=== PATIENT | male | born 1940 | race Caucasian/White ===

== ENCOUNTER 2019-02-23 03:39 | Outpatient (CLI) | payer MEDICARE, OTHER ==
[2019-02-23 13:30] LABS: Hemoglobin 13.9 g/dL (14.0-18.0); Mean Corpuscular HGB CONC 34.2 g/dL (32.0-36.0); Mean Corpuscular Hemoglobin 33.2 pg (27.0-31.0); Mean Corpuscular Volume 96.9 fL (78.0-98.0); Mean Platelet Volume 6.9 fL (7.4-10.4); Platelet Count 239 thou/uL (130-400); RBC Distribution Width 12.1 % (11.5-14.5); White Blood Cell (WBC) Count 11.6 thou/uL (4.8-10.8)
[2019-02-23 13:53] LABS: Anion Gap 13 mmol/L (10-20); BUN (Urea Nitrogen) 18 mg/dL (8.4-25.7); Calc. Creatinine Clearance 0 mL/min (70-130); Calcium 10.3 mg/dL (7.8-10.44); Carbon Dioxide 28 mmol/L (23-31); Chloride 104 mmol/L (98-107); Estimated GFR-MDRD 59; Glucose 99 mg/dL (83-110); Potassium 4.3 mmol/L (3.5-5.1); Sodium 141 mmol/L (136-145)
== END 2019-02-23 03:40 | disposition home or self-care (01) ==
LOC: LABBT 03:39
PROVIDERS: ATTEND Neurological Surgery
DX: Z01.818 Encounter for other preprocedural examination (principal); M54.16 Radiculopathy, lumbar region
CPT/HCPCS: 80048; 85027; 93005; 93010

== ENCOUNTER 2019-03-02 06:17 | Day surgery (SDC) | payer MEDICARE, OTHER ==
[2019-02-23 12:12] VITALS: BMI 24.3
[2019-03-02] MEDS ORDERED: Fentanyl 100 MCG/2 ML VIAL ONE ×3 (10:01→11:05)
--- NOTE | 2019-03-02 11:28 | OP ---
DATE OF PROCEDURE: 03/02/2019 PROCEDURE PERFORMED: Left L4-L5 and left L5-S1 microdiskectomy with operating microscope. DESCRIPTION OF PROCEDURE: The patient was brought to the operating room and intubated. He was rolled in a prone position on gel-filled chest rolls. An incision was made exposing the L4-L5 and L5-S1. Level was confirmed by x-ray. We initially explored the L4-L5 interspace, removed the hemilamina and the ligament, identifying the left L5 nerve root and beneath this, did identify many loose fragments of disk material. There was also some CSF visualized. It did not seem to me that the entire disk could be visualized from this approach. We therefore also exposed left L5-S1 completely exposing the left L5 nerve root in the thecal sac running alongside the left L5 pedicle. Exploring from the left L5-S1 region, also identified extruded disk material at this point that disk material had extruded intradurally. We removed extensive disk material from both the L5-S1 and L4-L5 approaches completely decompressing the L5 nerve root and the thecal sac. The dural breach was ventral. Gelfoam was placed in this region. The wound was then extensively irrigated and maximum hemostasis was secured. Vancomycin powder was applied. The wound was then closed in anatomic layers. Job ID: [id number]
[2019-03-02] MEDS ORDERED: Promethazine HCl 25 MG/ML VIAL ONE (11:35)
[2019-03-02] MEDS ORDERED: HYDROcodone/Acetaminophen 5/325 mg Tablet ONE (12:52)
[2019-03-02] MEDS ORDERED: Ondansetron PF 4 MG/2 ML Vial ONE (12:56)
[2019-03-02] MEDS ORDERED: Rocuronium Bromide 10 MG/ML (10ML VIAL) ONE (12:56)
[2019-03-02] MEDS ORDERED: Glycopyrrolate 0.2 MG/ML 5 ML SYRINGE ONE (12:56)
[2019-03-02] MEDS ORDERED: Dexamethasone 20 MG/5 ML VIAL ONE (12:56)
[2019-03-02] MEDS ORDERED: PROPOFOL 200 MG/20 ML VIAL ONE (12:56)
== END 2019-03-02 13:57 | disposition home or self-care (01) ==
LOC: SDC 06:17
PROVIDERS: ATTEND Neurological Surgery
PROC: 0SB20ZZ Excision of Lumbar Vertebral Disc, Open Approach (ICD-10-PCS; principal; 2019-03-02)
DX: M51.16 Intervertebral disc disorders with radiculopathy, lumbar region (principal); I25.10 Atherosclerotic heart disease of native coronary artery without angina pectoris; E78.5 Hyperlipidemia, unspecified; J30.9 Allergic rhinitis, unspecified; Z79.1 Long term (current) use of non-steroidal anti-inflammatories (NSAID); Z79.82 Long term (current) use of aspirin; Z79.02 Long term (current) use of antithrombotics/antiplatelets; Z79.899 Other long term (current) drug therapy; Z91.041 Radiographic dye allergy status; Z95.1 Presence of aortocoronary bypass graft; Z95.5 Presence of coronary angioplasty implant and graft
CPT/HCPCS: 76000; J0690; J1100; J2405; J2550; J2704; J3010; J3370

== ENCOUNTER 2021-02-21 10:37 | Outpatient (CLI) | payer MEDICARE, OTHER ==
[2021-02-21 11:40] LABS: Hemoglobin 13.1 g/dL (13.5-17.5); Mean Corpuscular HGB CONC 33.4 g/dL (32.0-36.0); Mean Corpuscular Hemoglobin 32.2 pg (27.0-33.0); Mean Corpuscular Volume 96.3 fl (81.2-95.1); Mean Platelet Volume 9.4 fl (7.4-10.4); Platelet Count 223 10x3/uL (150-450); RBC Distribution Width 13.2 % (11.5-14.5); Red Blood Cell (RBC) Count 4.07 10x6/uL (4.32-5.72); White Blood Cell (WBC) Count 8.3 10x3/uL (3.5-10.5)
[2021-02-21 12:01] LABS: Anion Gap 14 mmol/L (10-20); BUN (Urea Nitrogen) 14 mg/dL (8.4-25.7); Calc. Creatinine Clearance 0 mL/min (70-130); Calcium 9.7 mg/dL (7.8-10.44); Carbon Dioxide 28 mmol/L (23-31); Chloride 104 mmol/L (98-107); Glucose 109 mg/dL (83-110); Potassium 4.6 mmol/L (3.5-5.1); Sodium 141 mmol/L (136-145)
[2021-02-21 20:37] LABS: SARS-CoV-2 PCR by NAA Not Detected (NotDetected)
== END 2021-02-21 10:38 | disposition home or self-care (01) ==
LOC: LABBT 10:37
PROVIDERS: ATTEND Neurological Surgery
DX: Z01.818 Encounter for other preprocedural examination (principal); M54.16 Radiculopathy, lumbar region; Z20.822 Contact with and (suspected) exposure to COVID-19
CPT/HCPCS: 80048; 85027; 93005; U0003; U0005; 87635; 93010

== ENCOUNTER 2021-02-26 06:37 | Observation (INO) | payer MEDICARE, OTHER ==
[2021-02-23 10:00] VITALS: BMI 22.8
[2021-02-26] MEDS ORDERED: Fentanyl 100 MCG/2 ML VIAL ONE ×2 (09:28→11:51)
[2021-02-26] MEDS ORDERED: PHENYLEPHRINE-NS 100 MCG/ML 10 ML SYRINGE ONE ×2 (09:55→11:18)
[2021-02-26] MEDS ORDERED: Lidocaine 1% PF 5 ML VIAL ONE (09:55)
[2021-02-26] MEDS ORDERED: Dexamethasone 20 MG/5 ML VIAL ONE (09:55)
[2021-02-26] MEDS ORDERED: PROPOFOL 200 MG/20 ML VIAL ONE (09:55)
[2021-02-26] MEDS ORDERED: Rocuronium Bromide 10 MG/ML (10ML VIAL) ONE (09:55)
[2021-02-26] MEDS ORDERED: Ondansetron PF 4 MG/2 ML Vial ONE (09:55)
[2021-02-26] MEDS ORDERED: SUGAMMADEX SODIUM 200 MG/2 ML VIAL ONE (11:12)
[2021-02-26] MEDS ORDERED: HYDROmorphone 2 MG/ML VIAL SLOW IVP PRN (11:42)
[2021-02-26] MEDS ORDERED: Meperidine HCl/PF 25 MG/ML VIAL SLOW IVP PRN (11:42)
[2021-02-26] MEDS ORDERED: Promethazine HCl 25 MG/ML VIAL SLOW IVP PRN (11:42)
[2021-02-26] MEDS ORDERED: Ondansetron HCl/PF 4 MG/2 ML Vial IVP PRN (11:42)
[2021-02-26] MEDS ORDERED: Promethazine HCl 25 MG/ML VIAL IM PRN (14:15)
[2021-02-26] MEDS ORDERED: Morphine 2 MG/ML VIAL SLOW IVP PRN (14:15)
[2021-02-26] MEDS ORDERED: diphenhydrAMINE 25 MG CAP PO PRN (14:15)
[2021-02-26] MEDS ORDERED: Promethazine 25 MG TAB PO PRN (14:15)
[2021-02-26] MEDS ORDERED: diphenhydrAMINE 50 MG/ML VIAL IVP PRN (14:15)
[2021-02-26] MEDS ORDERED: Morphine 4 MG/ML VIAL SLOW IVP PRN (14:15)
[2021-02-26] MEDS ORDERED: Promethazine HCl 12.5 MG SUPP PR PRN (14:15)
[2021-02-26] MEDS ORDERED: traMADol HCl 50 MG TAB PO PRN ×2 (14:15)
[2021-02-26] MEDS ORDERED: Acetaminophen/Codeine 30-300mg Tablet PO PRN ×2 (14:15)
[2021-02-26] MEDS ORDERED: tiZANidine HCl 4 MG TAB PO PRN (14:15)
[2021-02-26] MEDS ORDERED: Nitroglycerin 0.4 MG TAB (25 Tab Bottle) SL PRN (14:28)
[2021-02-26] MEDS ORDERED: EVOLOCUMAB SC SCH (14:30)
[2021-02-26] MEDS ORDERED: Zolpidem Tartrate 5 MG TAB PO PRN (14:40)
[2021-02-26] MEDS: Sodium Chloride 0.9% 1,000 ML IV SCH (15:11)
[2021-02-26] MEDS: Icosapent Ethyl 1 GM CAPSULE PO SCH ×2 (15:13→20:23)
[2021-02-26] MEDS: Isosorbide Mononitrate 20 MG TAB PO SCH ×2 (15:13→20:23)
[2021-02-26] MEDS: CEFAZOLIN 2 GM in Premix Bag 1 BAG IVPB SCH (16:42)
[2021-02-26] MEDS ORDERED: Atorvastatin Calcium 20 MG TAB PO SCH (21:00)
[2021-02-26] MEDS ORDERED: Azelastine 137 MCG/Spray 30 ML NS SCH (21:00)
[2021-02-27] MEDS: CEFAZOLIN 2 GM in Premix Bag 1 BAG IVPB SCH (00:01)
[2021-02-27] MEDS: Sodium Chloride 0.9% 1,000 ML IV SCH (06:12)
[2021-02-27] MEDS ORDERED: OLOPATADINE FS SCH (09:00)
[2021-02-27] MEDS ORDERED: Multivit, Therapeutic 1 TAB PO SCH (09:00)
[2021-02-27] MEDS ORDERED: ALOE VERA FS SCH (09:00)
[2021-02-27] MEDS ORDERED: GINGER ROOT PO SCH (09:00)
[2021-02-27] MEDS ORDERED: Ascorbic Acid 500 mg Chewable Tablet PO SCH (09:00)
[2021-02-27] MEDS ORDERED: ARGININE PO SCH (09:00)
[2021-02-27] MEDS ORDERED: Magnesium Oxide 400 MG TAB PO SCH (09:00)
[2021-02-27] MEDS ORDERED: FOCUS FACTOR PO SCH (09:00)
[2021-02-27] MEDS ORDERED: Loratadine 10 MG TAB PO SCH (09:00)
[2021-02-27] MEDS ORDERED: RESERVATROL PO SCH (09:00)
[2021-02-27] MEDS ORDERED: GARLIC PO SCH (09:00)
[2021-02-27] MEDS ORDERED: Cholecalciferol 1,000 UNITS (25 MCG) TAB PO SCH (09:00)
[2021-02-27] MEDS ORDERED: Oxybutynin ER 5 MG TAB PO SCH (09:00)
[2021-02-27] MEDS ORDERED: Fluticasone Propionate Nasal Spray 16 gm Bottle NASAL SCH (09:00)
[2021-02-27] MEDS ORDERED: SAW PALMETTO PO SCH (09:00)
[2021-02-27] MEDS ORDERED: POMEGRANATE PO SCH (09:00)
[2021-02-27] MEDS ORDERED: Amlodipine 5 MG TAB PO SCH (09:00)
[2021-02-27] MEDS: Isosorbide Mononitrate 20 MG TAB PO SCH (10:24)
[2021-02-27] MEDS: Icosapent Ethyl 1 GM CAPSULE PO SCH (10:25)
[2021-02-27 11:33] VITALS: BP 118/62; TEMP 98
== END 2021-02-27 12:35 | disposition home or self-care (01) ==
LOC: SDC 06:37 → SURG B 11:49
PROVIDERS: ADMIT Neurological Surgery; ATTEND Internal Medicine
PROC: 0SG10AJ Fusion of 2 or more Lumbar Vertebral Joints with Interbody Fusion Device, Posterior Approach, Anterior Column, Open Approach (ICD-10-PCS; principal; 2021-02-26)
PROC: 0SG1071 Fusion of 2 or more Lumbar Vertebral Joints with Autologous Tissue Substitute, Posterior Approach, Posterior Column, Open Approach (ICD-10-PCS; 2021-02-26)
PROC: 0ST20ZZ Resection of Lumbar Vertebral Disc, Open Approach (ICD-10-PCS; 2021-02-26)
DX: M54.16 Radiculopathy, lumbar region (principal); I25.810 Atherosclerosis of coronary artery bypass graft(s) without angina pectoris; I10 Essential (primary) hypertension; E78.5 Hyperlipidemia, unspecified; R32 Unspecified urinary incontinence; J30.9 Allergic rhinitis, unspecified; Z79.899 Other long term (current) drug therapy; Z88.8 Allergy status to other drugs, medicaments and biological substances; Z91.041 Radiographic dye allergy status; Z95.5 Presence of coronary angioplasty implant and graft
CPT/HCPCS: 20936; 22633; 22634; 22853 ×2; 76000; 97116; 97139; C1713 ×4; C1768; 96374; 96376; G0378; J0690; J1100; J2405; J2704; J3010; J3370; J3490

== ENCOUNTER 2021-03-14 12:46 | Outpatient (CLI) | payer MEDICARE, OTHER | END 2021-03-14 12:47 | disposition home or self-care (01) | LOC: TBSIIMAG 12:46 | PROVIDERS: ATTEND Physician Assistant | DX: M47.26 Other spondylosis with radiculopathy, lumbar region (principal); Z98.890 Other specified postprocedural states | CPT/HCPCS: 72100 ==

== ENCOUNTER 2022-09-25 19:01 | Emergency (ER) | payer MEDICARE, OTHER ==
[2022-09-25 20:08] LABS: Bilirubin Negative (Negative); Blood, Urine Negative (Negative); Clarity Turbid (Clear); Glucose, Urine (Dipstick) Normal (Negative); Ketone, Urine Negative (Negative); Leukocyte Negative Leu/uL (Negative); Nitrite Negative (Negative); Protein, Urine (Dipstick) Negative (Neg-Trace); Specific Gravity, Urine 1.015 (1.002-1.036); Urobilinogen Normal mg/dL (Less than 2)
[2022-09-25 20:08] LABS: #Eosinphils 0.4 thou/uL (0.0-0.7); #Lymphocytes 2.5 thou/uL (1.20-3.40); #Monocytes 0.9 thou/uL (0.11-0.59); #Neutrophils 7.1 thou/uL (1.40-6.50); %Basophils 0.4 % (0.0-1.0); %Eosinophils 3.3 % (0.0-10.0); %Monocytes 8.1 % (0.0-10.0); %Neutrophils 65.2 % (42.0-75.0); Hemoglobin 14.3 g/dL (14.0-18.0); Mean Corpuscular HGB CONC 33.3 g/dL (32.0-36.0); Mean Corpuscular Hemoglobin 32.6 pg (27.0-31.0); Mean Corpuscular Volume 97.8 fl (78.0-98.0); Mean Platelet Volume 6.5 fL (7.4-10.4); Platelet Count 282 10x3/uL (130-400); RBC Distribution Width 12.5 % (11.5-14.5); Red Blood Cell (RBC) Count 4.38 mill/uL (4.70-6.10); White Blood Cell (WBC) Count 10.9 10x3/uL (4.8-10.8)
[2022-09-25 20:28] LABS: ALT (SGPT) 26 U/L (8-55); AST (SGOT) 31 U/L (5-34); Alkaline Phosphatase 73 U/L (40-110); Anion Gap 17 mmol/L (10-20); BUN (Urea Nitrogen) 21 mg/dL (8.4-25.7); Bilirubin, Total 0.8 mg/dL (0.2-1.2); CK (CPK) 261 U/L (30-200); Calc. Creatinine Clearance 0 mL/min (70-130); Calcium 10.4 mg/dL (7.8-10.44); Carbon Dioxide 27 mmol/L (23-31); Chloride 99 mmol/L (98-107); Estimated GFR 76; Glucose 91 mg/dL (83-110); Lipase 6 U/L (8-78); Potassium 3.9 mmol/L (3.5-5.1); Sodium 139 mmol/L (136-145)
== END 2022-09-25 22:28 | disposition home or self-care (01) ==
LOC: ERS 19:01
DX: R53.1 Weakness (principal); R29.6 Repeated falls; E11.9 Type 2 diabetes mellitus without complications; I10 Essential (primary) hypertension; E78.5 Hyperlipidemia, unspecified; Z79.84 Long term (current) use of oral hypoglycemic drugs; Z79.899 Other long term (current) drug therapy; Z79.82 Long term (current) use of aspirin
CPT/HCPCS: 70450; 71045; 80053; 81003; 82140; 82550; 83690; 84484; 85025; 93005

== ENCOUNTER 2023-05-07 11:09 | Observation (INO) | payer MEDICARE, OTHER ==
[2023-05-07 12:17] LABS: Bacteria/HPF None Seen HPF (None Seen); Bilirubin Negative (Negative); Blood, Urine Negative (Negative); Clarity Clear (Clear); Glucose, Urine (Dipstick) Normal (Negative); Ketone, Urine Negative (Negative); Leukocyte Negative Leu/uL (Negative); Nitrite Negative (Negative); Protein, Urine (Dipstick) Negative (Neg-Trace); RBC/HPF 0-3 HPF (0-3); Specific Gravity, Urine 1.019 (1.002-1.036); Squamous Epithelial None Seen HPF (0-3); Urobilinogen Normal mg/dL (Less than 2); WBC/HPF 0-3 HPF (0-3)
[2023-05-07 12:26] LABS: CAUTI Indications for Culture Pelvic or flank pain
[2023-05-07] MEDS ORDERED: Zolpidem Tartrate 5 MG TAB ONE ×2 (12:37→13:25)
[2023-05-07] MEDS ORDERED: Adenosine 6 MG/2 ML VIAL ONE (12:38)
[2023-05-07] MEDS ORDERED: Aspirin 325 MG TAB ONE (12:38)
[2023-05-07] MEDS ORDERED: Aspirin Chewable 81 MG TAB ONE (12:49)
[2023-05-07] MEDS ORDERED: Aspirin 81 mg Enteric Coated Tablet ONE (12:49)
[2023-05-07 13:05] LABS: #Eosinphils 0.3 thou/uL (0.0-0.7); #Monocytes 0.7 thou/uL (0.11-0.59); #Neutrophils 4.8 thou/uL (1.40-6.50); %Basophils 0.4 % (0.0-1.0); %Eosinophils 3.3 % (0.0-10.0); %Lymphocytes 24.6 % (21.0-51.0); %Monocytes 9.1 % (0.0-10.0); %Neutrophils 61.6 % (42.0-75.0); Hematocrit 35.4 % (42.0-52.0); Hemoglobin 11.6 g/dL (14.0-18.0); Mean Corpuscular HGB CONC 32.8 g/dL (32.0-36.0); Mean Corpuscular Volume 97.5 fl (78.0-98.0); Mean Platelet Volume 8.5 fL (7.4-10.4); Platelet Count 264 10x3/uL (130-400); RBC Distribution Width 14.1 % (11.5-14.5); Red Blood Cell (RBC) Count 3.63 mill/uL (4.70-6.10); White Blood Cell (WBC) Count 7.8 10x3/uL (4.8-10.8)
[2023-05-07 13:28] LABS: Lactic Acid 1.2 mmol/L (0.5-2.2)
[2023-05-07 13:32] LABS: ALT (SGPT) 16 U/L (8-55); AST (SGOT) 26 U/L (5-34); Albumin 3.8 g/dL (3.4-4.8); Alkaline Phosphatase 70 U/L (40-110); Anion Gap 13 mmol/L (10-20); BUN (Urea Nitrogen) 19 mg/dL (8.4-25.7); Bilirubin, Total 0.4 mg/dL (0.2-1.2); Calc. Creatinine Clearance 0 mL/min (70-130); Carbon Dioxide 28 mmol/L (23-31); Chloride 101 mmol/L (98-107); Estimated GFR 86; Globulin 2.3 g/dL (2.4-3.5); Glucose 116 mg/dL (83-110); Lipase 8 U/L (8-78); Potassium 3.9 mmol/L (3.5-5.1); Protein, Total 6.1 g/dL (5.8-8.1); Sodium 138 mmol/L (136-145)
[2023-05-07] MEDS ORDERED: Acetaminophen 325 MG TAB PO PRN (14:28)
[2023-05-07] MEDS ORDERED: Ondansetron PF 4 MG/2 ML Vial IVP PRN (14:28)
[2023-05-07] MEDS ORDERED: Ondansetron ODT 4 MG TAB PO PRN (14:28)
[2023-05-07] MEDS ORDERED: tiZANidine HCl 4 MG TAB PO PRN (15:02)
[2023-05-07] MEDS ORDERED: Nitroglycerin 0.4 MG TAB (25 Tab Bottle) SL PRN (15:02)
[2023-05-07] MEDS ORDERED: Loratadine 10 MG TAB PO PRN (15:10)
[2023-05-07 15:26] LABS: Troponin I Less than 0.010 ng/mL (< 0.028)
[2023-05-07 18:43] VITALS: BMI 21.5
[2023-05-07 19:16] LABS: Troponin I Less than 0.010 ng/mL (< 0.028)
[2023-05-07] MEDS ORDERED: rOPINIRole HCl 1 MG TAB PO SCH (20:30)
[2023-05-07] MEDS: Icosapent Ethyl 1 GM CAPSULE PO SCH (20:38)
[2023-05-07] MEDS ORDERED: CARBIDOPA PO SCH (21:00)
[2023-05-07] MEDS ORDERED: LEVODOPA PO SCH (21:00)
[2023-05-07] MEDS ORDERED: Gabapentin 300 MG CAP PO SCH (21:00)
[2023-05-08 05:40] LABS: #Eosinphils 0.4 thou/uL (0.0-0.7); #Monocytes 0.8 thou/uL (0.11-0.59); #Neutrophils 4.8 thou/uL (1.40-6.50); %Basophils 0.5 % (0.0-1.0); %Eosinophils 5.4 % (0.0-10.0); %Lymphocytes 23.5 % (21.0-51.0); Hemoglobin 12.3 g/dL (14.0-18.0); Mean Corpuscular HGB CONC 33.2 g/dL (32.0-36.0); Mean Corpuscular Hemoglobin 32.4 pg (27.0-31.0); Mean Corpuscular Volume 97.4 fl (78.0-98.0); Mean Platelet Volume 8.5 fL (7.4-10.4); Platelet Count 261 10x3/uL (130-400); RBC Distribution Width 14.4 % (11.5-14.5); White Blood Cell (WBC) Count 7.9 10x3/uL (4.8-10.8)
[2023-05-08 06:08] LABS: Anion Gap 13 mmol/L (10-20); BUN (Urea Nitrogen) 21 mg/dL (8.4-25.7); Calc. Creatinine Clearance 56 mL/min (70-130); Calcium 8.9 mg/dL (7.8-10.44); Carbon Dioxide 26 mmol/L (23-31); Chloride 105 mmol/L (98-107); Estimated GFR 81; Glucose 94 mg/dL (83-110); Potassium 4.5 mmol/L (3.5-5.1); Sodium 139 mmol/L (136-145)
[2023-05-08] MEDS: Icosapent Ethyl 1 GM CAPSULE PO SCH (08:17)
[2023-05-08] MEDS ORDERED: Regadenoson 0.4 MG/5 ML SYRINGE ONE (08:30)
[2023-05-08] MEDS ORDERED: Amlodipine 5 MG TAB PO SCH (09:00)
[2023-05-08] MEDS ORDERED: Clopidogrel Bisulfate 75 MG TAB PO SCH (09:00)
[2023-05-08] MEDS ORDERED: rOPINIRole HCl 1 MG TAB PO SCH (09:00)
[2023-05-08] MEDS ORDERED: Aspirin Chewable 81 MG TAB PO SCH ×2 (09:00)
[2023-05-08 12:23] VITALS: BP 147/65; TEMP 97.4
== END 2023-05-08 15:19 | disposition home or self-care (01) ==
LOC: ERS 11:09 → ERHOLD 14:34 → 2SW 18:36
PROVIDERS: ADMIT Internal Medicine; ATTEND Internal Medicine
DX: R07.9 Chest pain, unspecified (principal); E11.9 Type 2 diabetes mellitus without complications; I10 Essential (primary) hypertension; E78.5 Hyperlipidemia, unspecified; I25.10 Atherosclerotic heart disease of native coronary artery without angina pectoris; G20 Parkinson's disease; F03.90 Unspecified dementia, unspecified severity, without behavioral disturbance, psychotic disturbance, mood disturbance, and anxiety; Z95.5 Presence of coronary angioplasty implant and graft; Z91.041 Radiographic dye allergy status; Z88.8 Allergy status to other drugs, medicaments and biological substances; Z79.899 Other long term (current) drug therapy; Z79.82 Long term (current) use of aspirin; Z79.02 Long term (current) use of antithrombotics/antiplatelets; Z90.89 Acquired absence of other organs
CPT/HCPCS: 71045; 78452; 80048; 81001; 83605; 83690; 83735; 83880; 84484 ×2; 85025; 93005; 93017; 94760 ×2; 99285; A9500; 36415; 80053; 84443; G0378; J0153; J2785

== ENCOUNTER 2024-07-20 09:43 | Observation (INO) | payer MEDICARE, OTHER ==
[2024-07-20 10:15] LABS: #Basophils 0.04 10x3/uL (0.0-0.2); %Basophils 0.4 % (0.0-1.0); %Eosinophils 4.8 % (0.0-10.0); %Lymphocytes 24.3 % (21.0-51.0); %Monocytes 7.8 % (0.0-10.0); %Neutrophils 62.3 % (42.0-75.0); Hematocrit 35.7 % (42.0-52.0); Hemoglobin 11.3 g/dL (14.0-18.0); Mean Corpuscular HGB CONC 31.7 g/dL (32.0-36.0); Mean Corpuscular Hemoglobin 29.4 pg (27.0-31.0); Mean Platelet Volume 8.5 fL (7.4-10.4); Platelet Count 270 10x3/uL (130-400); RBC Distribution Width 16.1 % (11.5-14.5); Red Blood Cell (RBC) Count 3.84 mill/uL (4.70-6.10)
[2024-07-20 10:29] LABS: INR-International Normal Ratio 0.9; PTT 27.5 sec (22.9-36.1); Prothrombin Time 12.3 sec (12.0-14.7)
[2024-07-20 10:35] LABS: ALT (SGPT) 7 U/L (8-55); AST (SGOT) 32 U/L (5-34); Albumin 3.8 g/dL (3.4-4.8); Alkaline Phosphatase 68 U/L (40-110); Anion Gap 13 mmol/L (10-20); BUN (Urea Nitrogen) 22 mg/dL (8.4-25.7); Bilirubin, Total 0.4 mg/dL (0.2-1.2); Calc. Creatinine Clearance 0 mL/min (70-130); Calcium 9.4 mg/dL (7.8-10.44); Carbon Dioxide 24 mmol/L (23-31); Chloride 105 mmol/L (98-107); Estimated GFR 63; Globulin 2.9 g/dL (2.4-3.5); Glucose 151 mg/dL (83-110); Lipase 13 U/L (8-78); Potassium 4.1 mmol/L (3.5-5.1); Protein, Total 6.7 g/dL (5.8-8.1); Sodium 138 mmol/L (136-145)
[2024-07-20 10:38] LABS: Troponin I Less than 0.010 ng/mL (< 0.028)
[2024-07-20] MEDS ORDERED: Aspirin Chewable 81 MG TAB ONE (10:56)
[2024-07-20] MEDS ORDERED: Ondansetron PF 4 MG/2 ML Vial IVP PRN (11:28)
[2024-07-20] MEDS ORDERED: Senokot S 8.6-50 MG TAB PO PRN (11:28)
[2024-07-20] MEDS ORDERED: Ondansetron ODT 4 MG TAB PO PRN (11:28)
[2024-07-20] MEDS ORDERED: Calcium Carbonate 500 MG ChewTAB PO PRN (11:28)
[2024-07-20] MEDS ORDERED: Acetaminophen 325 MG TAB PO PRN (11:28)
[2024-07-20 13:50] LABS: Troponin I Less than 0.010 ng/mL (< 0.028)
[2024-07-20 16:52] LABS: Troponin I Less than 0.010 ng/mL (< 0.028)
[2024-07-20 19:29] VITALS: BMI 25.0
[2024-07-20] MEDS: Nitroglycerin 2% Ointment 1 INCH/1 GM Packet TOP SCH (19:45)
[2024-07-20] MEDS: rOPINIRole HCl 1 MG TAB PO SCH (19:45)
[2024-07-20] MEDS: Icosapent Ethyl 1 GM CAPSULE PO SCH (19:46)
[2024-07-20] MEDS: Rivastigmine 1.5 MG CAP PO SCH (19:46)
[2024-07-20] MEDS ORDERED: CARBIDOPA PO SCH (21:00)
[2024-07-20] MEDS ORDERED: LEVODOPA PO SCH (21:00)
[2024-07-20] MEDS: Ketotifen 0.035% Ophth Soln 5 ml Bottle EA EYE SCH (21:13)
[2024-07-20] MEDS: Gabapentin 300 MG CAP PO SCH (21:13)
[2024-07-21 04:47] LABS: #Basophils 0.05 10x3/uL (0.0-0.2); %Basophils 0.5 % (0.0-1.0); %Lymphocytes 27.2 % (21.0-51.0); %Monocytes 7.6 % (0.0-10.0); %Neutrophils 56.4 % (42.0-75.0); Hematocrit 36.4 % (42.0-52.0); Hemoglobin 11.9 g/dL (14.0-18.0); Mean Corpuscular HGB CONC 32.7 g/dL (32.0-36.0); Mean Corpuscular Hemoglobin 29.4 pg (27.0-31.0); Mean Corpuscular Volume 89.9 fL (78.0-98.0); Mean Platelet Volume 8.9 fL (7.4-10.4); Platelet Count 269 10x3/uL (130-400); RBC Distribution Width 16.1 % (11.5-14.5); Red Blood Cell (RBC) Count 4.05 mill/uL (4.70-6.10)
[2024-07-21 05:04] LABS: ALT (SGPT) 19 U/L (8-55); AST (SGOT) 31 U/L (5-34); Albumin 3.6 g/dL (3.4-4.8); Alkaline Phosphatase 58 U/L (40-110); Anion Gap 12 mmol/L (10-20); BUN (Urea Nitrogen) 24 mg/dL (8.4-25.7); Bilirubin, Total 0.5 mg/dL (0.2-1.2); Calc. Creatinine Clearance 50 mL/min (70-130); Calcium 9.5 mg/dL (7.8-10.44); Carbon Dioxide 26 mmol/L (23-31); Cardiac Risk 3.8 (Less than 4.5); Chloride 105 mmol/L (98-107); Cholesterol 169 mg/dl (< 200 Desired); Estimated GFR 60; Glucose 102 mg/dL (83-110); HDL Cholesterol 45 mg/dL (>60 Neg Risk); LDL Cholesterol, Calculated 68 mg/dL; Potassium 4.3 mmol/L (3.5-5.1); Protein, Total 6.6 g/dL (5.8-8.1); Sodium 139 mmol/L (136-145); Triglycerides 280 mg/dL (Less than 150)
[2024-07-21] MEDS: CO Q-10 CAPSULE 100 MG PO SCH (07:54)
[2024-07-21] MEDS: Enoxaparin 40 MG (0.4 mL) SYRINGE SC SCH (07:54)
[2024-07-21] MEDS: Amlodipine 5 MG TAB PO SCH (07:54)
[2024-07-21] MEDS: Clopidogrel Bisulfate 75 MG TAB PO SCH (07:55)
[2024-07-21] MEDS: Oxybutynin 5 MG TAB PO SCH (07:55)
[2024-07-21] MEDS: Aspirin Chewable 81 MG TAB PO SCH (07:55)
[2024-07-21 08:19] VITALS: TEMP 97.7
[2024-07-21] MEDS ORDERED: Clopidogrel Bisulfate 75 MG TAB PO SCH (09:00)
[2024-07-21 12:11] VITALS: BP 132/67
== END 2024-07-21 13:30 | disposition home or self-care (01) ==
LOC: SUATTDRO 09:43 → ERS 09:43 → ERHOLD 11:25 → OBS 16:59
PROVIDERS: ADMIT Internal Medicine; ATTEND Internal Medicine
DX: R07.9 Chest pain, unspecified (principal); G20.A1 Parkinson's disease without dyskinesia, without mention of fluctuations; F02.80 Dementia in other diseases classified elsewhere, unspecified severity, without behavioral disturbance, psychotic disturbance, mood disturbance, and anxiety; I10 Essential (primary) hypertension; I25.10 Atherosclerotic heart disease of native coronary artery without angina pectoris; E78.5 Hyperlipidemia, unspecified; Z95.1 Presence of aortocoronary bypass graft; Z79.899 Other long term (current) drug therapy
CPT/HCPCS: 71045; 80053 ×2; 80061; 83036; 83690; 83735; 83880; 84484 ×2; 85025 ×2; 85610; 85730; 93005 ×2; 94760; 96372; 99285; G0378 ×3; J1650; 36415; 93010